=== PATIENT | female | born 1995 | race Two or more races ===

== ENCOUNTER 2022-11-10 23:25 | Emergency (ER) | payer MEDICAID, OTHER ==
[~2022-11-10] VITALS: Ht 157.5 cm; Wt 71.4 kg
[2022-11-11 00:16] VITALS: BP 121/66; PULSE 107; RESP 18; TEMP 98.6; O2SAT 97
[2022-11-11 00:30] LABS: Urine Bacteria FEW /hpf (None Seen); Urine Blood Negative /uL (Negative); Urine Clarity Clear (Clear); Urine Color Colorless (Yellow); Urine Protein, UAD Negative (Negative); Urine Specific Gravity 1.002 (1.001-1.035); Urine Urobilinogen Normal (Negative); Urine WBC <1 /hpf (0 - 5); Urine pH 6.5 (5.0-8.0)
[2022-11-11] MEDS ORDERED: PROMETHAZINE HCL 25 MG/ML 1ML IM ONE (00:30)
[2022-11-11 00:55] LABS: Rapid Influenza A Negative (Negative); Rapid Influenza B Negative (Negative)
[2022-11-11 00:56] LABS: COVID19 ANTIGEN SOFIA FIA NEGATIVE (NEGATIVE)
[2022-11-11] MEDS ORDERED: ACETAMINOPHEN 325 MG TAB PO ONE (01:00)
== END 2022-11-11 01:22 | disposition home or self-care (01) ==
LOC: ER 23:25
DX: O21.8 Other vomiting complicating pregnancy (principal); J45.909 Unspecified asthma, uncomplicated; Z20.822 Contact with and (suspected) exposure to COVID-19; Z3A.22 22 weeks gestation of pregnancy
CPT/HCPCS: 36415; 81001; 87426; 87804; 96372; 99283; J2550